=== PATIENT | male | born 1960 | race African-American/Black ===

== ENCOUNTER 2018-02-23 21:03 | Emergency (ER) | payer BC ==
[~2018-02-23] VITALS: Ht 182.9 cm; Wt 82.0 kg
[2018-02-23 21:05] VITALS: BP 140/70
== END 2018-02-24 | disposition left against medical advice (07) ==
LOC: ER 21:51
DX: F41.0 Panic disorder [episodic paroxysmal anxiety] (principal); R00.2 Palpitations; Z53.21 Procedure and treatment not carried out due to patient leaving prior to being seen by health care provider
CPT/HCPCS: 93005